=== PATIENT | male | born 1985 | race Caucasian/White ===

== ENCOUNTER 2017-10-01 00:27 | Inpatient (IN) | payer BC ==
[2017-10-01 00:46] VITALS: BMI 31.9
[2017-10-01 00:48] VITALS: O2SAT 98
--- NOTE | 2017-10-01 00:49 | ED PDOC ---
Psych Transfer Clearance - Clearance Statement Clearance Statement: Reviewed vital signs, lab results and transfer papers. Patient clinically stable for psychiatric admission.
[2017-10-01] MEDS ORDERED: Alum-Mag Hydrox-Simethicone Susp (30 mL) PO PRN (01:05)
[2017-10-01] MEDS ORDERED: DiphenhydrAMINE 50 mg/ml Inj IM PRN (01:05)
[2017-10-01] MEDS ORDERED: Magnesium Hydroxide Susp 30 ml UD PO PRN (01:05)
[2017-10-01] MEDS ORDERED: Bismuth Subsalicylate 262 mg/15 ml Sus (240 ml) PO PRN (01:07)
--- NOTE | 2017-10-01 01:27 | PCM.BM ---
<Catherine Cardona P - Last Filed: 10/01/17 01:26> Treatment Plan Problems - Problems identified on initial assessmt Hopelessness/Helplessness Date Initiated: 10/01/17 Time Initiated: Assessment reference: NA Status: Active Altered Sleep Patterns Date Initiated: 10/01/17 Time Initiated: : Assessment reference: NA Status: Active Treatment assets and liabiliti Patient Assests: cooperative, ADL independent, physically healthy, negotiates basic needs, cognitively intact Patient Liabilities: live alone, poor support system, relationship conflicts - Milieu Protocol Maintain good personal hygiene: daily Encourage regular showers, daily Remind patient to perform daily oral care Conduct patient checks and document Observation sheet: Q15 minutes Maintain personal safety: every shift Educate patient to report safety concerns to staff, every shift Monitor environment for contraband/sharps Medication safety: Monitor for expected outcome, potential side effects: every shift, Assess barriers to learning: every shift, Assess readiness for medication education: every shift <Kolton Mederos J - Last Filed: 10/02/17 17:05> Family Contact Family involvement: Family/SO is involved Family contact: Patient agrees to contact (Pt does not know any of his family/ friends numbers by memory and his phone is currently locked in security and cannot be accessed. ) - Goals for Treatment Patient goals for treatment: Pt would like to gain more strength and energy and process the separation from his . Discharge/Continuing Care - Education Needs Education Needs: Patient Medication, Patient Diagnosis/Disease Process, Patient Coping Skills, Patient Personal Hygiene/Grooming, Patient Aftercare Safety Plan - Discharge Discharge Criteria: Tolerates medication w/o severe side effects, Normal sleep pattern, Reduction of target symptoms Discharge to:: Home - Treatment Team Participation Was Patient/Family/SO present at Treatment Team Meeting: Yes <Amaris Sorto - Last Filed: 10/03/17 13:43> Discharge/Continuing Care - Treatment Team Participation Patient/Family/SO Statement: 10/03/17 13:43 Patient attended this mornings tx team and was able to participate/engage in discussion regarding precursors to hospitalization, progress on 3NP and aftercare. Patient identifies recent separation from of 8 years as primary stressor contributing to acute onset of depression. Patient reports decrease in energy and motivation. Patient reports increase in sleep and social withdrawal. Patient reports vague feelings of hopelessness. Patient appears to be minimizing ETOH abuse but does report recently elf-medication with ETOH. Patient presents as depressed and anxious but to a lesser degree than upon admission. Patient expressed motivation for outpatient tx upon d/c. <Alek Mark - Last Filed: 10/03/17 13:51> - Diagnosis (1) Depression Status: Acute Interventions: PHARMACOTHERAPY, PSYCHOTHERAPY 10/03/17 13:48
[2017-10-01 08:27] LABS: T4 6.81 ug/dl (5.5-11.0)
[2017-10-01 08:41] LABS: THYROID STIMULATING HORMONE 1.06 mIU/ML (0.46-4.68)
--- NOTE | 2017-10-01 10:51 | CP.PCM.CON ---
History of Present Illness - History of Present Illness History of Present Illness: CC: Depression This is a 32 year old male with past medical history who is presenting to the ED with c/o worsening depressions. He says that he is in his normal state of health and denies any medical problems. Denies cp, sob, weakness, headache, nausea, vomiting, diarrhea, recent illness, fevers, or chills. The patient is admitted to the psychiatric unit for further workup and management of his depression. Review of Systems - Hematologic/Lymphatic Additional comments: GENERAL/CONSTITUTIONAL: The patient denies fever, fatigue, weakness, weight gain or weight loss. HEAD, EYES, EARS, NOSE AND THROAT: Eyes - The patient denies pain, redness, loss of vision, double or blurred vision, flashing lights or spots, dryness, Ears, nose, mouth and throat. The patient denies ringing in the ears, loss of hearing, nosebleeds, loss of sense of smell, dry sinuses, sinusitis, post nasal drip, CARDIOVASCULAR: The patient denies chest pain, chest pressure, or irregular heartbeats, RESPIRATORY: The patient denies chronic dry cough, coughing up blood, coughing up mucus, wheezing, or shortness of breath. GASTROINTESTINAL: The patient denies decreased appetite, nausea, vomiting, vomiting blood or coffee ground material, heartburn, regurgitation, diarrhea, constipation, gas, blood in the stools, black tarry stools. GENITOURINARY: The patient denies difficult urination, pain or burning with urination, blood in the urine, frequency, or urgency MUSCULOSKELETAL: The patient denies arm, buttock, thigh or calf cramps. No joint or muscle pain. No muscle weakness or tenderness. No joint swelling, neck pain, back pain. SKIN: The patient denies easy bruising, skin redness, skin rash, hives, sensitivity to sun exposure, tightness, nodules or bumps, hair loss, color changes in the hands or feet with cold. NEUROLOGIC: The patient denies headache, dizziness, fainting, muscle spasm, loss of consciousness, sensitivity or pain in the hands and feet or memory loss. PSYCHIATRIC: The patient denies anxiety, depression, or thoughts of suicide. ENDOCRINE: The patient denies intolerance to hot or cold temperature, flushing, fingernail changes, increased thirst, or increased salt intake HEMATOLOGIC/LYMPHATIC: The patient denies anemia, bleeding tendency or clotting tendency. ALLERGIC/IMMUNOLOGIC: The patient denies rhinitis, asthma, skin sensitivity, latex allergies or sensitivity. Past Patient History - Infectious Disease Hx of Infectious Diseases: None - Past Medical History & Family History Past Medical History?: No Past Family History: Reviewed and not pertinent - CARDIAC Hx Cardiac Disorders: No - PULMONARY Hx Respiratory Disorders: No - NEUROLOGICAL Hx Neurological Disorder: No - HEENT Hx HEENT Problems: No - RENAL Hx Chronic Kidney Disease: No - ENDOCRINE/METABOLIC Hx Endocrine Disorders: No - HEMATOLOGICAL/ONCOLOGICAL Hx Blood Disorders: No - INTEGUMENTARY Hx Dermatological Problems: No - MUSCULOSKELETAL/RHEUMATOLOGICAL Hx Musculoskeletal Disorders: No - GASTROINTESTINAL Hx Gastrointestinal Disorders: No - GENITOURINARY/GYNECOLOGICAL Hx Genitourinary Disorders: No - PSYCHIATRIC Hx Substance Use: No - SURGICAL HISTORY Hx Surgeries: No - ANESTHESIA Hx Anesthesia: No Meds Allergies/Adverse Reactions: Allergies Allergy/AdvReac Type Severity Reaction Status Date / Time No Known Allergies Allergy Verified 10/01/17 00:43 - Medications Medications: Current Medications Acetaminophen (Tylenol 325mg Tab) 650 mg PO Q4 PRN PRN Reason: pain level 4-7 Al Hydrox/Mg Hydrox/Simethicone (Maalox Plus 30 Ml) 30 ml PO Q4 PRN PRN Reason: Dyspepsia Bismuth Subsalicylate (Pepto-Bismol) 524 mg PO Q4 PRN PRN Reason: Diarrhea Diphenhydramine HCl (Benadryl) 50 mg IM Q6 PRN PRN Reason: Extrapyramidal S/S Unable PO Diphenhydramine HCl (Benadryl) 50 mg PO Q6 PRN PRN Reason: Extrapyramidal Symptoms Diphenhydramine HCl (Benadryl) 50 mg PO HS PRN PRN Reason: Sleep Last Admin: 10/01/17 02:11 Dose: 50 mg Haloperidol (Haldol) 5 mg PO Q4 PRN PRN Reason: Agitation Haloperidol Lactate (Haldol) 5 mg IM Q4 PRN PRN Reason: Agitation, Unable to Take PO Lorazepam (Ativan) 2 mg IM Q4 PRN PRN Reason: Anxiety/Agitation,Unable PO Lorazepam (Ativan) 2 mg PO Q4 PRN PRN Reason: Anxiety/Agitation Magnesium Hydroxide (Milk Of Magnesia) 30 ml PO HS PRN PRN Reason: Constipation Physical Exam - Additional Findings Additional findings: Physical exam: Constitutional- cooperative, awake, alert. Head- NCAT, PERRL Eye- PERRL, normal accommodation ENT- normal exam, MMM. Neck- normal inspection, supple, no JVD Respiratory- CTAB, no wheezes rales rhonchi Cardiovascular- RRR, +S1, +S2 no MRG GI/Abdominal- normal bowel sounds, soft, no mass, no hsm Skin- warm, dry Extremities Exam- normal capillary refill, normal inspection Neurological Exam- alert, stable gait Psych- normal mood, normal affect Results - Vital Signs Recent Vital Signs: Last Vital Signs Temp 98.2 F 10/01/17 00:43 Pulse 75 10/01/17 02:20 Resp 18 10/01/17 02:20 BP 133/99 H 10/01/17 00:43 Pulse Ox 98 10/01/17 00:43 - Labs Labs: Laboratory Results - last 24 hr 10/01/17 07:00 Triglycerides 140 Cholesterol 159 LDL Cholesterol Direct 99 HDL Cholesterol 57 Thyroxine (T4) 6.81 TSH 3rd Generation 1.06 Assessment & Plan - Assessment and Plan (Free Text) Plan: ASSESSMENT - Depression PLAN - Patient admitted to psychiatric unit - Lipid profile wnl - F/u HGA1C - Continue to monitor vitals - Regular diet - Patient hemodynamically stable, no further workup at this time - Thank you for the consultation
--- NOTE | 2017-10-01 12:06 | PCM.PSYCH ---
Initial Psychiatric Evaluation - Initial Psychiatric Evaluation Type of Admission: Voluntary Legal Status: Capacity Chief Complaint (in patient's own words): "I'm depressed." Patient's Reaction to Hospitalization: HPI: 32 yo male w/ no prior psychiatric history, presents w/ worsening depression, poor concentration, sleep/appetite disturbances, anhedonia and intermittent ideations of escaping his life, but no active suicidal ideation/ plan/intent. He also reports that he believes he has memory problems at times. He drinks ETOH intermittently, sometimes 2-3 times /week and will forget what he does when he drinks. He reports that his social stressors include being from his . 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 +Alcohol use, possibly binging episodes, patient was vague about alcohol use Current Medications: Active Medications Generic Name Dose Route Start Last Admin Trade Name Jemma PRN Reason Stop Dose Admin Acetaminophen 650 mg 10/01/17 01:05 Tylenol 325mg Tab PO Q4 PRN pain level 4-7 Al Hydrox/Mg Hydrox/Simethicone 30 ml 10/01/17 01:05 Maalox Plus 30 Ml PO Q4 PRN Dyspepsia Bismuth Subsalicylate 524 mg 10/01/17 01:07 Pepto-Bismol PO Q4 PRN Diarrhea Diphenhydramine HCl 50 mg 10/01/17 01:05 Benadryl IM Q6 PRN Extrapyramidal S/S Unable PO Diphenhydramine HCl 50 mg 10/01/17 01:05 Benadryl PO Q6 PRN Extrapyramidal Symptoms Diphenhydramine HCl 50 mg 10/01/17 01:07 10/01/17 02:11 Benadryl PO 50 mg HS PRN Administration Sleep Haloperidol 5 mg 10/01/17 01:05 Haldol PO Q4 PRN Agitation Haloperidol Lactate 5 mg 10/01/17 01:05 Haldol IM Q4 PRN Agitation, Unable to Take PO Lorazepam 2 mg 10/01/17 01:05 Ativan IM Q4 PRN Anxiety/Agitation,Unable PO Lorazepam 2 mg 10/01/17 01:05 Ativan PO Q4 PRN Anxiety/Agitation Magnesium Hydroxide 30 ml 10/01/17 01:05 Milk Of Magnesia PO HS PRN Constipation Past Psychiatric History - Past Psychiatric History Previous Treatment History: None Pertinent Medical Hx (Current Medical&Sleep Prob, Allergies): Allergies Allergy/AdvReac Type Severity Reaction Status Date / Time No Known Allergies Allergy Verified 10/01/17 00:43 No Known Home Med 10/01/17 Review of Systems - Psychiatric Psychiatric: As Per HPI, Abnormal Sleep Pattern, Anhedonia, Change in Appetite, Depression, Difficulty Concentrating, Hopelessness, Mood Swings Mental Status Examination - Personal Presentation Personal Presentation: Looks stated age - Affect Affect: Depressed - Motor Activity Motor Activity: Calm - Reliability in Providing Information Reliability in Providing Information: Good - Speech Speech: Organized - Mood Mood: Depressed - Formal Thought Process Formal Thought Process: No Impairment - Hallucinations/Delusions Additional comments: Denies AH/VH/paranoia/delusions - Obsessions/Compulsions Obsessions: No Compulsions: No - Cognitive Functions Orientation: Person, Place, Situation, Time Sensorium: Alert Attention/Concentration: Attentive Judgement: Intact, as evidence by: Insight regarding need for hospitalization Memory: Recent intact, as evidence by: Ability to recall events of the day, Remote intact, as evidenced by: Abilit to recall sig. life events, Remote intact , as evidenced by: Ability to recall historical events - Risk Risk: Diminished functioning - Strength & Assets Inventory Strength & Assets Inventory: Intelligence, Employment history, Cooperative DSM 5 DX - DSM 5 DSM 5 Diagnosis: Major Depressive Disorder - Recommended/Plan of Treatment Treatment Recommendations and Plan of Treatment: Major Depressive Disorder; patient needs acute inpatient admission for treatment and stabilization -Admit to psychiatry -Patient stated that he is uncertain if he wants to take antidepressants at this time; r/b/se discussed w/ the patient; patient given handouts on Lexapro and Zoloft -Medicine consult appreciated -Individual and group therapy -No 1:1 indicated at this time -Disposition planning Projected ELOS: 4-7 days Discharge Plan and Discharge Criteria: Discharge when psychiatrically stable
--- NOTE | 2017-10-02 09:13 | PCM.PYCHPN ---
Psychiatric Progress Note - Psychiatric Progress Note Patient seen today, length of contact: Patient evaluated, case discussed with team, chart reviewed Patient Chief Complaint: "I'm depressed." Problems Identified/Issues Discussed: Patient agreed to start Zoloft 50 mg PO Daily yesterday. He denies current adverse effects to Zoloft. He reports that he continues to feel depressed and has constricted/ depressed affect on interview. No AH/VH/paranoia/delusions. Medication Change: No Medical Record Reviewed: Yes Consults ordered or reviewed: Medicine consult appreciated Mental Status Examination - Cognitive Function Orientation: Person, Place, Situation, Time Memory: Intact Attention: WNL Concentration: WNL Association: WNL Fund of Knowledge: [facility] Decription of patient's judgement and insights: Fair I/J - Mood Mood: Depressed - Affect Affect: Depressed - Speech Speech: Soft - Formal Thought Process Formal Thought Process: No Impairment Psychotic Thoughts and Behaviors: NO AH/VH/paranoia/delusions - Suicidal Ideation Suicidal Ideation: No - Homicidal Ideation Homicidal Ideation: No Goal/Treatment Plan - Goal/Treatment Plan Need for Continued Stay: Remain at risks for inpatient hospitalization, Severe depression anxiety, Discharge may exacerbated symptoms Progress Toward Problem(s) and Goals/Treatment Plan: Major Depressive Disorder; patient needs acute inpatient admission for treatment and stabilization -Continue Zoloft 50 mg PO Daily -Medicine consult appreciated -Individual and group therapy -No 1:1 indicated at this time -Disposition planning Estimated Date of D/C: 10/04/17
[2017-10-02] MEDS ORDERED: Influenza Vaccine 18yr & older 0.5 ML/45 MCG SYR IM ONE (10:00)
[2017-10-03 09:12] VITALS: RESP 20
--- NOTE | 2017-10-03 14:02 | PCM.PYCHPN ---
Psychiatric Progress Note - Psychiatric Progress Note Patient seen today, length of contact: Patient evaluated, case discussed with team, chart reviewed Patient Chief Complaint: it was very hrd to see my marriage broken i feel lost and depressed, no meaning for life Problems Identified/Issues Discussed: pt on evaluation, partial eye contact, mood feeling lost and affect very depressed and anxious, patient continues to have passive suicidal ideations stating he finds no meaning for his life ,pt reported decreased sleep and appetite, denied any current active suicidal ideations or plan, denied homicidal ideations, denied perceptual disturbances, no reported side effects of medications DSM 5 Symptoms Update: major depression single episode alcohol use disorder alcohol induced mood disorder with depressive features Medication Change: No Medical Record Reviewed: Yes Mental Status Examination - Cognitive Function Orientation: Person, Place, Situation, Time Memory: Intact Attention: WNL Concentration: WNL Association: WNL Fund of Knowledge: WNL - Mood Mood: Depressed, Anxious - Affect Affect: Depressed - Speech Speech: Soft - Formal Thought Process Formal Thought Process: No Impairment - Suicidal Ideation Suicidal Ideation: No - Homicidal Ideation Homicidal Ideation: No Goal/Treatment Plan - Goal/Treatment Plan Need for Continued Stay: Remain at risks for inpatient hospitalization, Severe depression anxiety, Discharge may exacerbated symptoms Progress Toward Problem(s) and Goals/Treatment Plan: pt continues to be depressed and anxious with limited insight into alcohol use continue with zoloft 50mg with plan to uptitrate gradually CBT motivational and supportive therapy provided monitor pt for psychopharmacological effects and side effect profile Estimated Date of D/C: 10/05/17
--- NOTE | 2017-10-04 13:10 | PCM.PYCHPN ---
Psychiatric Progress Note - Psychiatric Progress Note Patient seen today, length of contact: Patient evaluated, case discussed with team, chart reviewed Patient Chief Complaint: I always want to cry and I feel i am stuck in the same place Problems Identified/Issues Discussed: pt on evaluation, ibetter eye contact, more opened to discuss his feelings, continues to report , feeling lost and overwhelmed with sadness and affect very depressed and anxious, patient continues to have passive suicidal ideations stating he finds no meaning for his life ,pt reported decreased sleep and appetite, denied any current active suicidal ideations or plan, denied homicidal ideations, denied perceptual disturbances, no reported side effects of medications DSM 5 Symptoms Update: major depression single episode severe without psychotic features Medication Change: Yes (will uptitrate zoloft to 75mg) Medical Record Reviewed: Yes Mental Status Examination - Cognitive Function Orientation: Person, Place, Situation, Time Memory: Intact Attention: WNL Concentration: WNL Association: WN Fund of Knowledge: WN - Mood Mood: Depressed, Anxious - Affect Affect: Depressed - Speech Speech: Soft - Formal Thought Process Formal Thought Process: No Impairment - Suicidal Ideation Suicidal Ideation: No - Homicidal Ideation Homicidal Ideation: No Goal/Treatment Plan - Goal/Treatment Plan Need for Continued Stay: Remain at risks for inpatient hospitalization, Severe depression anxiety, Discharge may exacerbated symptoms Progress Toward Problem(s) and Goals/Treatment Plan: pt continues to be depressed and anxious continue with zoloft 50mg with plan to uptitrate gradually start abilify 2mg CBT motivational and supportive therapy provided monitor pt for psychopharmacological effects and side effect profile Estimated Date of D/C: 10/05/17
[2017-10-05 09:24] VITALS: BP 141/89; PULSE 99; TEMP 98.1
--- NOTE | 2017-10-05 09:59 | PCM.PYCHDC ---
Mental Status Examination - Mental Status Examination Orientation: Person, Place, Situation, Time Memory: Intact Mood: Neutral Affect: Constricted Speech: Appropriate Attention: WNL Concentration: WNL Association: WNL Fund of Knowledge: WNL Formal Thought Process: No Impairment Description of patient's judgement and insight: good insight and judgment Psychotic Thoughts and Behaviors: pt denied any current perceptual disturbances non elicited Suicidal Ideation: No Current Homicidal Ideation?: No Discharge Summary - Discharge Note Reason for Hospitalization: 32 yo male w/ no prior psychiatric history, presents w/ worsening depression, poor concentration, sleep/appetite disturbances, anhedonia and intermittent ideations of escaping his life, but no active suicidal ideation/plan/intent. He also reports that he believes he has memory problems at times. He drinks ETOH intermittently, sometimes 2-3 times /week and will forget what he does when he drinks. He reports that his social stressors include being from his . No AH/VH/paranoia/delusions Consultations:: List each consultation separately and include: 1. Reason for request. 2. Findings. 3. Follow-up Consultations: family practice Summary of Hospital Course include:: 1. Description of specific treatment plan utilized for patients during their course of treatmen. 2. Summarize the time- course for resolution of acute symptoms and/or regressed behaviors. 3. Describe issues identified and worked on during hospitalization. 4. Describe medication utilized. 5. Describe medical problems identified and treated. 6. Reassessment of suicide risk Summary of Hospital Course: pt on admission was started on zoloft 25 mg for depression and anxiety, this was uptitrated to 50mg. pt appeared to have overvalued ideas and catastrophizing, CBT was provided and pt was started on abilify 2mg pt attended groups, no reported side effects of medications pt was educated about coping skills with stress no reported side effects of medications on discharge pt mental status was stable, denied suicidal or homicidal ideations denied perceptual disturbances - Diagnosis (1) Depression Current Visit: Yes Status: Acute - Final Diagnosis (DSM 5) Condition upon Discharge: STABLE Disposition: HOME/ ROUTINE Follow-up Treatment Plan: pt continues to be depressed and anxious continue with zoloft 50mg with plan to uptitrate gradually start abilify 2mg CBT motivational and supportive therapy provided monitor pt for psychopharmacological effects and side effect profile Prescriptions/Medication Reconciliation: ARIPiprazole [Abilify] 2 mg PO DAILY 30 Days #30 tab Sertraline [Zoloft] 50 mg PO DAILY 30 Days #50 tab - Antipsychotic Medications Pt discharged on 2 or more routine antipsychotic medications: No
== END 2017-10-05 14:38 | disposition home or self-care (01) | DRG 881 ==
LOC: H.ER 00:27 → H.ERHOLD 00:46 → UNDOADMIN 00:46 → H.PSYCH 00:57 → H.ERHOLD 00:57 → H.PSYCH 01:09
PROVIDERS: ADMIT Psychiatry & Neurology Psychiatry; ATTEND Psychiatry & Neurology Psychiatry
PROC: GZHZZZZ Group Psychotherapy (ICD-10-PCS; principal; 2017-10-01)
PROC: GZ58ZZZ Individual Psychotherapy, Cognitive-Behavioral (ICD-10-PCS; 2017-10-01)
PROC: GZ56ZZZ Individual Psychotherapy, Supportive (ICD-10-PCS; 2017-10-01)
PROC: 3E0234Z Introduction of Serum, Toxoid and Vaccine into Muscle, Percutaneous Approach (ICD-10-PCS; 2017-10-03)
DX: F32.9 Major depressive disorder, single episode, unspecified (principal); R45.851 Suicidal ideations; F41.9 Anxiety disorder, unspecified; Z23 Encounter for immunization

== ENCOUNTER 2017-12-28 12:09 | Emergency (ER) | payer SELFPAY ==
--- NOTE | 2017-12-28 12:27 | ED PDOC ---
HPI: General Adult Time Seen by Provider: 12/28/17 12:26 Chief Complaint (Nursing): Dizziness/Lightheaded Chief Complaint (Provider): dizziness History Per: Patient Additional Complaint(s): 32-year-old male presents to emergency department complaining of dizziness and nausea that started earlier this morning. Patient denies any headache, vomiting or abdominal pain, no fever or chills. He admits to drinking alcohol 2 nights ago but denies any alcohol consumption in the last 24 hours. He denies any drug use. No chest pain, shortness of breath or dyspnea on exertion. PMD: none Past Medical History Reviewed: Historical Data Vital Signs: Last Vital Signs Temp 97.4 F L 12/28/17 12:12 Pulse 86 12/28/17 12:12 Resp 19 12/28/17 12:12 BP 134/99 H 12/28/17 12:12 Pulse Ox 99 12/28/17 15:44 - Medical History PMH: No Chronic Diseases - Family History Family History: States: No Known Family Hx - Living Arrangements Living Arrangements: With Friends/Others - Social History Current smoker - smoking cessation education provided: No Alcohol: Social Drugs: Denies - Allergies Allergies/Adverse Reactions: Allergies Allergy/AdvReac Type Severity Reaction Status Date / Time No Known Allergies Allergy Verified 12/28/17 12:12 Review of Systems ROS Statement: Except As Marked, All Systems Reviewed And Found Negative Constitutional: Negative for: Fever Cardiovascular: Negative for: Chest Pain Respiratory: Negative for: Cough Gastrointestinal: Positive for: Nausea. Negative for: Vomiting, Abdominal Pain , Diarrhea Neurological: Positive for: Dizziness. Negative for: Headache Physical Exam - Reviewed Nursing Documentation Reviewed: Yes Vital Signs Reviewed: Yes - Physical Exam Appears: Positive for: Well, Non-toxic, No Acute Distress Skin: Negative for: Rash Eye Exam: Positive for: Normal appearance Cardiovascular/Chest: Positive for: Regular Rate, Rhythm Respiratory: Positive for: Normal Breath Sounds. Negative for: Wheezing, Respiratory Distress Gastrointestinal/Abdominal: Positive for: Soft. Negative for: Tenderness Extremity: Positive for: Normal ROM Neurologic/Psych: Positive for: Alert, Oriented - Laboratory Results Result Diagrams: 12/28/17 12:55 12/28/17 12:55 - ECG Interpretation Of ECG: Normal sinus rhythm 79 bpm, no acute findings, reviewed by PA ED attending. O2 Sat by Pulse Oximetry: 99 Pulse Ox Interpretation: Normal Medical Decision Making Medical Decision Makin32 year old with dizziness and nausea Plan: CBC CMP BAL IVF EKG UDS Flu swab BAL is 223. Patient was observed for several hours in ED, his condition remained stable throughout his stay. 4:30 pm: Patient is awake, alert, has steady gait, stable for discharge. Disposition - Clinical Impression Clinical Impression: Alcohol intoxication - Patient ED Disposition Is Patient to be Admitted: No Counseled Patient/Family Regarding: Need For Followup - Disposition Referrals: [facility] [Outside] Disposition: Routine/Home Disposition Time: 16:33 Condition: STABLE Instructions: Alcohol Intoxication (ED) Forms: expressor software (Ivorian) Results - Lab Results Lab Results: 12/28/17 12/28/17 12/28/17 12:55 12:55 12:55 WBC 3.3 L RBC 4.73 Hgb 14.6 Hct 43.0 MCV 90.9 MCH 31.0 MCHC 34.1 RDW 14.8 H Plt Count 242 MPV 8.2 Neut % (Auto) 39.8 L Lymph % (Auto) 43.6 H [place] % (Auto) 13.6 H Eos % (Auto) 1.6 Baso % (Auto) 1.4 Neut # (Auto) 1.3 L Lymph # (Auto) 1.5 [place] # (Auto) 0.5 Eos # (Auto) 0.1 Baso # (Auto) 0.0 Sodium 144 Potassium 4.8 Chloride 106 Carbon Dioxide 27 Anion Gap 16 BUN 10 Creatinine 1.1 Est GFR ( Amer) > 60 Est GFR (Non-Af Amer) > 60 Random Glucose 84 Calcium 8.9 Total Bilirubin 0.8 AST 53 ALT 57 Alkaline Phosphatase 57 Total Protein 7.9 Albumin 4.2 Globulin 3.6 Albumin/Globulin Ratio 1.2 Urine Opiates Screen Negative Urine Methadone Screen Negative Ur Barbiturates Screen Negative Ur Phencyclidine Scrn Negative Ur Amphetamines Screen Negative U Benzodiazepines Scrn Negative U Oth Cocaine Metabols Negative U Cannabinoids Screen Negative Alcohol, Quantitative 223 H Influenza Typ A,B (EIA) 12/28/17 12:53 WBC RBC Hgb Hct MCV MCH MCHC RDW Plt Count MPV Neut % (Auto) Lymph % (Auto) [place] % (Auto) Eos % (Auto) Baso % (Auto) Neut # (Auto) Lymph # (Auto) [place] # (Auto) Eos # (Auto) Baso # (Auto) Sodium Potassium Chloride Carbon Dioxide Anion Gap BUN Creatinine Est GFR ( Amer) Est GFR (Non-Af Amer) Random Glucose Calcium Total Bilirubin AST ALT Alkaline Phosphatase Total Protein Albumin Globulin Albumin/Globulin Ratio Urine Opiates Screen Urine Methadone Screen Ur Barbiturates Screen Ur Phencyclidine Scrn Ur Amphetamines Screen U Benzodiazepines Scrn U Oth Cocaine Metabols U Cannabinoids Screen Alcohol, Quantitative Influenza Typ A,B (EIA) Negative for flu a/b
[2017-12-28] MEDS ORDERED: Sodium Chloride 0.9% 1,000 ML IV STA (12:41)
[2017-12-28 13:10] LABS: BASO % 1.4 % (0.0-2.0); EOS # 0.1 K/uL (0.0-0.7); EOS % 1.6 % (0.0-4.0); HEMOGLOBIN 14.6 g/dL (12.0-18.0); LYMPH # 1.5 K/uL (1.0-4.3); LYMPH % 43.6 % (20.0-40.0); MEAN CELL VOLUME 90.9 fl (80.0-94.0); MEAN CORPUSCULAR HGB CONC 34.1 g/dL (33.0-37.0); MEAN PLATELET VOLUME 8.2 fl (7.2-11.7); MONO # 0.5 K/uL (0.0-0.8); MONO % 13.6 % (0.0-10.0); NEUT # 1.3 K/uL (1.8-7.0); NEUT % 39.8 % (50.0-75.0); NRBC % 0.3 % (0.0-0.0); RBC 4.73 Mil/uL (4.40-5.90); RED CELL DISTRIBUTION WIDTH 14.8 % (11.5-14.5); WHITE BLOOD COUNT 3.3 K/uL (4.8-10.8)
[2017-12-28 13:22] LABS: CALCIUM 8.9 mg/dL (8.4-10.2); GFR AFRICAN-AMERICAN > 60; GFR NON-AFRICAN AMERICAN > 60
[2017-12-28 13:25] LABS: ALB/GLOB RATIO 1.2 (1.0-2.1); ALBUMIN 4.2 g/dL (3.5-5.0); ALT/SGPT 57 U/L (21-72); AST/SGOT 53 U/L (17-59); BLOOD UREA NITROGEN 10 mg/dl (9-20)
[2017-12-28 13:33] LABS: BARBITURATES, UR NEGATIVE (NEGATIVE); BENZODIAZEPINES, UR NEGATIVE (NEGATIVE); OPIATES, UR NEGATIVE (NEGATIVE); PHENCYCLIDINE, UR NEGATIVE (NEGATIVE)
[2017-12-28 17:27] VITALS: BP 128/78; PULSE 78; RESP 18; TEMP 97; O2SAT 98
--- NOTE | 2017-12-29 11:28 | CARD ---
APPROVED REPORT EKG Measurement Heart [id number] <Conclusion> Normal sinus rhythm Possible Left atrial enlargement Borderline ECG
== END 2017-12-28 17:29 | disposition home or self-care (01) ==
LOC: EDBD 12:09 → H.ER 12:09 → MERGE 12:09 → H.ER 17:29
DX: F10.129 Alcohol abuse with intoxication, unspecified (principal)
CPT/HCPCS: 80053; 85025; 87804; 93005; 99283; G0480; J7040